=== PATIENT | female | born 1975 | race Caucasian/White ===

== ENCOUNTER → 2017-05-19 16:14 | Outpatient (CLI) | payer SELFPAY ==
[2015-04-23 10:24] VITALS: BMI 32.0
[~2017-05-19 16:14] MED LIST: ADDERALL 20 MG20 M1 PO; ALDACTONE50 MG PO; IBUPROFEN600 MG PO; PERCOCET 5-3251 TAB PO; SYNTHROID125 MCG PO; [UNRECOGNIZED DRUG - REMARK]
== END | disposition home or self-care (01) ==
LOC: D.MAMMO 10:15
DX: Z12.31 Encounter for screening mammogram for malignant neoplasm of breast (principal)

== ENCOUNTER → 2017-06-20 17:14 | Outpatient (CLI) | payer SELFPAY ==
[2015-04-23 10:24] VITALS: BMI 32.0
== END | disposition home or self-care (01) ==
LOC: D.MAMMO 14:00
DX: R92.8 Other abnormal and inconclusive findings on diagnostic imaging of breast (principal)